=== PATIENT | male | born 1970 ===

== ENCOUNTER 2016-11-01 16:48 | Emergency (ER) | payer MEDICAID, OTHER ==
[2016-11-01 17:32] LABS: BASO # 0.1 K/uL (0.0-0.2); BASO % 0.4 % (0.0-2.0); EOS # 0.2 K/uL (0.0-0.7); EOS % 1.6 % (0.0-4.0); HEMATOCRIT 49.9 % (35.0-51.0); LYMPH # 1.9 K/uL (1.0-4.3); LYMPH % 13.6 % (20.0-40.0); MEAN CELL VOLUME 101.2 fl (80.0-94.0); MEAN CORPUSCULAR HEMOGLOBIN 32.1 pg (27.0-31.0); MEAN CORPUSCULAR HGB CONC 31.7 g/dL (33.0-37.0); MEAN PLATELET VOLUME 7.6 fl (7.2-11.7); MONO # 0.8 K/uL (0.0-0.8); MONO % 5.7 % (0.0-10.0); NEUT # 10.7 K/uL (1.8-7.0); NEUT % 78.7 % (50.0-75.0); RED CELL DISTRIBUTION WIDTH 13.7 % (11.5-14.5); WHITE BLOOD COUNT 13.6 K/uL (4.8-10.8)
[2016-11-01 17:45] LABS: ALB/GLOB RATIO 1.6 (1.0-2.1); ALCOHOL SERUM < 10 mg/dl (0-10); ALKALINE PHOSPHATASE 84 U/L (38-126); ALT/SGPT 50 U/L (21-72); AST/SGOT 31 U/L (17-59); BILIRUBIN,TOTAL 0.3 mg/dl (0.2-1.3); BLOOD UREA NITROGEN 20 mg/dl (9-20); CALCIUM 9.1 mg/dL (8.4-10.2); CARBON DIOXIDE 26 mmol/L (22-30); CHLORIDE 102 mmol/L (98-107); GFR AFRICAN-AMERICAN > 60; GLUCOSE,RANDOM 200 mg/dL (75-110); POTASSIUM 3.7 MMOL/L (3.6-5.0); SODIUM 142 mmol/l (132-148); TOTAL PROTEIN 7.2 G/DL (6.3-8.2)
--- NOTE | 2016-11-01 19:37 | ED PDOC ---
HPI: Psych/Substance Abuse Time Seen by Provider: 11/01/16 16:59 Chief Complaint (Nursing): Substance Abuse Chief Complaint (Provider): Overdose ED Caveat: Intoxicated History Per: Family (Mother.) History/Exam Limitations: intoxication Onset/Duration Of Symptoms: Hrs Current Symptoms Are (Timing): Still Present Additional Complaint(s): Juan J Farrar, a 46 year old male, is brought in by EMS for overdose. History is limited due to the patient's intoxicated state. The patient was found at home by his mother poorly responsive. The EMS report that he was given narcan both intranasally and IV and became more alert. Upon arrival to the ER patient is lethargic but arousable. Patient has been to the ER previously for opiate overdose. Past Medical History Reviewed: Historical Data, Nursing Documentation, Vital Signs Vital Signs: Last Vital Signs Temp 97.1 F L 11/01/16 16:50 Pulse 96 H 11/01/16 19:25 Resp 19 11/01/16 19:25 BP 125/71 11/01/16 17:11 Pulse Ox 95 11/01/16 19:25 - Medical History PMH: Denies: Chronic Kidney Disease - Family History Family History: Denies: Diabetes - Immunization History Hx Tetanus Toxoid Vaccination: Yes Hx Influenza Vaccination: No Hx Pneumococcal Vaccination: No - Home Medications Home Medications: Ambulatory Orders Medication Instructions Recorded Amoxicillin/Clavulanate Pota 1 tab PO BID #14 tab 01/05/15 [Augmentin 875 mg-125 mg] Saccharomyces Boulardii [Florastor] 250 mg PO BID #20 cap 01/05/15 oxyCODONE/Acetaminophen [Percocet 1 tab PO Q6H PRN #12 tab 01/05/15 5/325 mg Tab] - Allergies Allergies/Adverse Reactions: Allergies Allergy/AdvReac Type Severity Reaction Status Date / Time No Known Allergies Allergy Verified 01/03/15 17:49 Review of Systems ROS Statement: Except As Marked, All Systems Reviewed And Found Negative Physical Exam - Reviewed Nursing Documentation Reviewed: Yes Vital Signs Reviewed: Yes - Physical Exam Appears: Positive for: No Acute Distress Head Exam: Positive for: ATRAUMATIC, NORMOCEPHALIC Skin: Positive for: Normal Color, Warm, Dry Eye Exam: Positive for: Normal appearance, EOMI, PERRL ENT: Positive for: Normal ENT Inspection Neck: Positive for: Normal Cardiovascular/Chest: Positive for: Regular Rate, Rhythm, Chest Non Tender. Negative for: Tachycardia Respiratory: Positive for: Normal Breath Sounds, Accessory Muscle Use. Negative for: Wheezing, Respiratory Distress Gastrointestinal/Abdominal: Positive for: Normal Exam, Bowel Sounds, Soft. Negative for: Tenderness, Guarding, Rebound Back: Positive for: Normal Inspection Extremity: Positive for: Normal ROM. Negative for: Tenderness, Deformity, Swelling Neurologic/Psych: Positive for: Alert (Alert and lethargic with slurred speech but arousable.). Negative for: Motor/Sensory Deficits - Laboratory Results Result Diagrams: 11/01/16 17:15 11/01/16 17:15 - ECG O2 Sat by Pulse Oximetry: 95 (RA) Pulse Ox Interpretation: Normal Medical Decision Making Medical Decision Makin:59 Initial Impression: 46 year old male presenting with overdose. Initial Plan: * Alcohol serum * CMP * Drug screen * Udip * CBC(with differential) * CXR * 1:1 Observation * Glucose blood, POC Labs unremarkable. 2030 On reeval pt awake and oriented. No signs of withdrawal Scribe Attestation Documented by Gela Bautista acting as a scribe for Gina Baum MD. Scribe Attestation All medical record entries made by the Scribe were at my direction and personally dictated by me. I have reviewed the chart and agree that the record accurately reflects my personal performance of the history, physical exam, medical decision making, and the department course for this patient. I have also personally directed, reviewed, and agree with the discharge instructions and disposition. Disposition - Clinical Impression Clinical Impression: Heroin abuse Counseled Patient/Family Regarding: Diagnosis, Need For Followup - Disposition Referrals: [facility] [Outside] Disposition: Routine/Home Disposition Time: 20:30 Condition: IMPROVED Additional Instructions: PLEASE SEEK OUT ASSISTANCE FOR YOUR DRUG PROBLEM SOON YOU CAN. Instructions: Narcotic Abuse (ED)
[2016-11-01 21:49] VITALS: BP 123/68; PULSE 82; RESP 14; TEMP 98.5
[2016-11-01 23:49] VITALS: O2SAT 95
--- NOTE | 2016-11-02 09:21 | RAD ---
HISTORY: heroin overdose COMPARISON: No prior. FINDINGS: LUNGS: Few nodular densities in the medial aspect of the right lower lung. These are of uncertain etiology. PLEURA: No significant pleural effusion identified, no pneumothorax apparent. CARDIOVASCULAR: Normal. OSSEOUS STRUCTURES: No significant abnormalities. VISUALIZED UPPER ABDOMEN: Upper abdomen is suboptimally evaluated. OTHER FINDINGS: None. IMPRESSION: Few nodular densities the medial aspect of the right lower lung. These are of uncertain etiology. PA lateral chest radiograph recommended.
== END 2016-11-01 21:50 | disposition home or self-care (01) ==
LOC: H.ER 16:48
DX: T40.1X1A Poisoning by heroin, accidental (unintentional), initial encounter (principal); F11.10 Opioid abuse, uncomplicated
CPT/HCPCS: 71010; 80053; 82948; 85025; 99285; G0480

== ENCOUNTER 2017-05-09 21:28 | Emergency (ER) | payer SELFPAY ==
[2017-05-09 21:32] VITALS: BP 134/86; PULSE 90; RESP 18; TEMP 98.3; O2SAT 96
--- NOTE | 2017-05-09 21:51 | ED PDOC ---
HPI: Psych/Substance Abuse Time Seen by Provider: 05/09/17 21:36 Chief Complaint (Nursing): Substance Abuse Chief Complaint (Provider): substance abuse Additional Complaint(s): 47yo M in ER states he overdosed on heroine was given narcan x2 in the field by police and sent to ER by EMS for evaluations. PT denies: chest pain SOB, dizziness Headache nausea or vomiting. pt admits to hx of substance abuse. Past Medical History Reviewed: Historical Data, Nursing Documentation, Vital Signs Vital Signs: Last Vital Signs Temp 98.3 F 05/09/17 21:30 Pulse 90 05/09/17 21:30 Resp 18 05/09/17 21:30 BP 134/86 05/09/17 21:30 Pulse Ox 96 05/09/17 21:30 - Medical History PMH: No Chronic Diseases Denies: Chronic Kidney Disease - Family History Family History: States: No Known Family Hx Denies: Diabetes - Immunization History Hx Tetanus Toxoid Vaccination: Yes Hx Influenza Vaccination: No Hx Pneumococcal Vaccination: No - Home Medications Home Medications: Ambulatory Orders Medication Instructions Recorded Amoxicillin/Clavulanate Pota 1 tab PO BID #14 tab 01/05/15 [Augmentin 875 mg-125 mg] Saccharomyces Boulardii [Florastor] 250 mg PO BID #20 cap 01/05/15 oxyCODONE/Acetaminophen [Percocet 1 tab PO Q6H PRN #12 tab 01/05/15 5/325 mg Tab] - Allergies Allergies/Adverse Reactions: Allergies Allergy/AdvReac Type Severity Reaction Status Date / Time No Known Allergies Allergy Verified 01/03/15 17:49 Review of Systems ROS Statement: Except As Marked, All Systems Reviewed And Found Negative Gastrointestinal: Negative for: Nausea, Vomiting, Abdominal Pain Psych: Negative for: Suicidal ideation Physical Exam - Reviewed Nursing Documentation Reviewed: Yes Vital Signs Reviewed: Yes - Physical Exam Appears: Positive for: Well (AAOX3), Non-toxic, No Acute Distress Head Exam: Positive for: ATRAUMATIC, NORMAL INSPECTION, NORMOCEPHALIC Skin: Positive for: Normal Color, Warm, DRY Eye Exam: Positive for: EOMI, Normal appearance, PERRL Cardiovascular/Chest: Positive for: Regular Rate, Rhythm Respiratory: Positive for: CNT, Normal Breath Sounds Neurologic/Psych: Positive for: Alert, Oriented - ECG O2 Sat by Pulse Oximetry: 96 - Progress ED Course And Treament: PT was offered EKG, declined. by AAOx3. Temp Pulse Resp BP Pulse Ox 98.3 F 90 18 134/86 96 05/09/17 21:30 05/09/17 21:30 05/09/17 21:30 05/09/17 21:30 05/09/17 21:51 Medical Decision Making Medical Decision Making: pt with stable gait and speech. stable for d.c Disposition - Clinical Impression Clinical Impression: Drug overdose - Patient ED Disposition Is Patient to be Admitted: No - Disposition Disposition: Routine/Home Disposition Time: 21:52 Condition: STABLE
== END 2017-05-09 21:43 | disposition home or self-care (01) ==
LOC: H.ER 21:28
DX: T50.901A Poisoning by unspecified drugs, medicaments and biological substances, accidental (unintentional), initial encounter (principal)

== ENCOUNTER 2017-07-24 10:19 | Emergency (ER) | payer SELFPAY ==
[2017-07-24 10:33] VITALS: BMI 28.1
[2017-07-24 10:34] VITALS: BP 163/84; PULSE 134; RESP 22; TEMP 100; O2SAT 90
--- NOTE | 2017-07-24 10:47 | ED PDOC ---
Syncope/Near Syncope/Dizziness Time Seen by Provider: 07/24/17 10:36 Chief Complaint (Nursing): Syncope History Per: Patient (Patient is brought by EMS after he passed out at work. Patient refused to be evaluated despite being made aware that his heart rate is abrnormally fast and that his BP is elevated. He is aware that the causes of his fainting include but is not limited to stroke, heart attack, internal bleeding or another life threatening illness and that refusal of urgent evaluation can lead to delay in diagnosis, treatment and even . Patient is alert and oriented x 3 and does not appear to be under the influence of drugs or alcohol.), EMS Past Medical History Reviewed: Nursing Documentation, Vital Signs, Unable To Obtain Vital Signs: Last Vital Signs Temp 100 F H 07/24/17 10:33 Pulse 134 H 07/24/17 10:33 Resp 22 07/24/17 10:33 BP 163/84 H 07/24/17 10:33 Pulse Ox 90 L 07/24/17 10:33 - Medical History PMH: Denies: Chronic Kidney Disease - Family History Family History: States: Unknown Family Hx - Immunization History Hx Tetanus Toxoid Vaccination: Yes Hx Influenza Vaccination: No Hx Pneumococcal Vaccination: No - Home Medications Home Medications: Ambulatory Orders Medication Instructions Recorded Amoxicillin/Clavulanate Pota 1 tab PO BID #14 tab 01/05/15 [Augmentin 875 mg-125 mg] Saccharomyces Boulardii [Florastor] 250 mg PO BID #20 cap 01/05/15 oxyCODONE/Acetaminophen [Percocet 1 tab PO Q6H PRN #12 tab 01/05/15 5/325 mg Tab] - Allergies Allergies/Adverse Reactions: Allergies Allergy/AdvReac Type Severity Reaction Status Date / Time No Known Allergies Allergy Verified 01/03/15 17:49 Review of Systems Review Of Systems: ROS cannot be obtained secondary to pt's inabilty to answer questions. (patient refused to cooperate) Physical Exam - Reviewed Nursing Documentation Reviewed: Yes Vital Signs Reviewed: Yes - Physical Exam Appears: Positive for: Well, No Acute Distress Skin: Positive for: Normal Color Eye Exam: Positive for: Normal appearance Neck: Positive for: Normal Extremity: Positive for: Normal ROM Neurologic/Psych: Positive for: Alert, Oriented, Gait. Negative for: Motor/ Sensory Deficits, Aphasia, Facial Droop - ECG O2 Sat by Pulse Oximetry: 90 Disposition - Clinical Impression Clinical Impression: Syncope - Disposition Disposition: Against Medical Advice Disposition Time: 10:40 Condition: GUARDED
== END 2017-07-24 10:42 | disposition left against medical advice (07) ==
LOC: H.ER 10:19
DX: R55 Syncope and collapse (principal)